=== PATIENT | male | born 1985 | race Caucasian/White ===

== ENCOUNTER 2022-09-28 09:04 | Inpatient (IN) | payer OTHER ==
[2022-09-28 09:31] VITALS: BMI 31.3
[2022-09-28] MEDS ORDERED: IBUPROFEN 400 MG TABLET (FP) PO PRN (10:08)
[2022-09-28] MEDS ORDERED: MAGNESIUM HYDROX 2400MG/30ML ORAL SUSPENSION 30 ML CUP PO PRN (10:08)
[2022-09-28] MEDS ORDERED: NALOXONE HCL (KLOXXADO) 8 MG SPRAY NS PRN (10:08)
[2022-09-28] MEDS ORDERED: IBUPROFEN 600 MG TABLET (FP) PO PRN (10:08)
[2022-09-28] MEDS ORDERED: cloNIDine HCL 0.1 MG TABLET PO PRN (10:08)
[2022-09-28] MEDS ORDERED: POLYETHYLENE GLYCOL (HEALTHYLAX) 3350 17 GM PACKET PO PRN (10:08)
[2022-09-28] MEDS ORDERED: DICYCLOMINE HCL 10 MG CAPSULE PO PRN (10:08)
[2022-09-28] MEDS ORDERED: ONDANSETRON *ODT* 4 MG TABLET SL PRN (10:08)
[2022-09-28] MEDS ORDERED: LOPERAMIDE HCL 2 MG CAPSULE PO PRN (10:08)
[2022-09-28] MEDS ORDERED: ACETAMINOPHEN 325 MG TABLET (FP) PO PRN (10:08)
[2022-09-28] MEDS ORDERED: BISMUTH SUBSALICYLATE 524 MG/30 ML PO PRN (10:08)
[2022-09-28] MEDS ORDERED: BENZOCAINE/MENTHOL (CHLORASEPTIC ) LOZENGE MM PRN (10:08)
[2022-09-28] MEDS ORDERED: methaDONE HCL 10 MG TABLET (FOR DETOX USE ONLY) PO ONE (10:08)
[2022-09-28] MEDS ORDERED: diazePAM 5 MG TABLET PO PRN (10:14)
[2022-09-28] MEDS ORDERED: methaDONE HCL 10 MG TABLET (FOR DETOX USE ONLY) ONE (10:37)
[2022-09-28] MEDS: BUDESONIDE/FORMETEROL FUMARATE 160/4.5 mcg INHALER IH SCH ×2 (14:53→23:11)
[2022-09-28] MEDS: ACETAMINOPHEN 325 MG TABLET (FP) PO PRN (17:33)
[2022-09-28] MEDS: MELATONIN 5 MG TABLETS PO SCH (23:10)
[2022-09-28] MEDS: THIAMINE HCL 100 MG TABLET (FP) PO SCH (23:11)
[2022-09-29] MEDS: METHOCARBAMOL 500 MG TABLET PO PRN ×3 (03:44→17:37)
[2022-09-29] MEDS: ACETAMINOPHEN 325 MG TABLET (FP) PO PRN ×2 (03:44→07:05)
[2022-09-29] MEDS: ALBUTEROL SO4 HFA INHALER IH PRN ×2 (09:04→17:36)
[2022-09-29] MEDS: PRENATAL VITAMINS W/ FOLIC ACID TABLET (FP) PO SCH (10:10)
[2022-09-29] MEDS: BUDESONIDE/FORMETEROL FUMARATE 160/4.5 mcg INHALER IH SCH ×2 (10:10→21:45)
[2022-09-29 13:08] LABS: HEMATOCRIT 42.7 % (35.4-49); HEMOGLOBIN 14.4 GM/dL (11.7-16.9); MCH 29.8 pg (25.7-33.7); MCHC 33.8 g/dl (32.0-35.9); MEAN CELL VOLUME 88.3 fl (80-96); MEAN PLT VOLUME 8.6 fl (7.5-11.1); PLATELET COUNT 396 10^3/uL (134-434); RBC 4.84 M/mm3 (4.00-5.60); RDW 13.7 % (11.9-15.9); WHITE BLOOD COUNT 7.9 K/mm3 (4.0-10.0)
[2022-09-29 13:15] LABS: CALCIUM 8.8 mg/dL (8.5-10.1)
[2022-09-29 13:18] LABS: ALBUMIN 3.6 g/dl (3.4-5.0)
[2022-09-29 13:21] LABS: CREATININE 0.8 mg/dL (0.55-1.3)
[2022-09-29 13:22] LABS: BILIRUBIN,TOTAL 0.4 mg/dL (0.2-1); TOT PROT 6.7 g/dl (6.4-8.2)
[2022-09-29] MEDS: MELATONIN 5 MG TABLETS PO SCH (21:45)
[2022-09-29] MEDS: THIAMINE HCL 100 MG TABLET (FP) PO SCH (21:45)
[2022-09-30] MEDS: MAG HYDROX/AL HYDROX/SIMETH 30 ML UNIT-DOSE CUP PO PRN (04:46)
[2022-09-30] MEDS ORDERED: methaDONE HCL 10 MG TABLET (FOR DETOX USE ONLY) PO ONE (10:00)
[2022-09-30] MEDS: BUDESONIDE/FORMETEROL FUMARATE 160/4.5 mcg INHALER IH SCH ×2 (10:05→21:20)
[2022-09-30] MEDS: PRENATAL VITAMINS W/ FOLIC ACID TABLET (FP) PO SCH (10:05)
[2022-09-30] MEDS ORDERED: BACITRACIN 0.9 GM PACKET TP ONE (13:00)
[2022-09-30] MEDS: hydrOXYzine PAMOATE 25 MG CAPSULE (FP) PO PRN (14:27)
[2022-09-30] MEDS: METHOCARBAMOL 500 MG TABLET PO PRN (17:27)
[2022-09-30] MEDS: THIAMINE HCL 100 MG TABLET (FP) PO SCH (21:17)
[2022-09-30] MEDS: MELATONIN 5 MG TABLETS PO SCH (21:17)
[2022-10-01] MEDS: ACETAMINOPHEN 325 MG TABLET (FP) PO PRN (00:57)
[2022-10-01] MEDS: ALBUTEROL SO4 HFA INHALER IH PRN ×3 (00:57→23:59)
[2022-10-01] MEDS: METHOCARBAMOL 500 MG TABLET PO PRN ×4 (02:01→22:24)
[2022-10-01] MEDS: PRENATAL VITAMINS W/ FOLIC ACID TABLET (FP) PO SCH (10:10)
[2022-10-01] MEDS: BUDESONIDE/FORMETEROL FUMARATE 160/4.5 mcg INHALER IH SCH ×2 (11:31→22:05)
[2022-10-01] MEDS: THIAMINE HCL 100 MG TABLET (FP) PO SCH (22:05)
[2022-10-01] MEDS: MELATONIN 5 MG TABLETS PO SCH (22:05)
[2022-10-01] MEDS: hydrOXYzine PAMOATE 25 MG CAPSULE (FP) PO PRN ×2 (22:24→23:11)
[2022-10-02] MEDS: PRENATAL VITAMINS W/ FOLIC ACID TABLET (FP) PO SCH (09:56)
[2022-10-02] MEDS: BUDESONIDE/FORMETEROL FUMARATE 160/4.5 mcg INHALER IH SCH ×2 (09:56→22:53)
[2022-10-02] MEDS ORDERED: methaDONE HCL 10 MG TABLET (FOR DETOX USE ONLY) PO ONE (10:00)
[2022-10-02] MEDS: METHOCARBAMOL 500 MG TABLET PO PRN ×3 (10:25→22:55)
[2022-10-02] MEDS: hydrOXYzine PAMOATE 25 MG CAPSULE (FP) PO PRN (16:26)
[2022-10-02] MEDS: THIAMINE HCL 100 MG TABLET (FP) PO SCH (22:53)
[2022-10-02] MEDS: MELATONIN 5 MG TABLETS PO SCH (22:54)
[2022-10-02] MEDS: MAG HYDROX/AL HYDROX/SIMETH 30 ML UNIT-DOSE CUP PO PRN (23:32)
[2022-10-03 06:38] VITALS: BP 140/79; PULSE 71; RESP 16; TEMP 97.7
== END 2022-10-03 08:57 | disposition home or self-care (01) | DRG 773 ==
LOC: YASAS 09:04 → Y3N 10:50
PROVIDERS: ADMIT Allergy & Immunology; ATTEND Surgery
PROC: HZ2ZZZZ Detoxification Services for Substance Abuse Treatment (ICD-10-PCS; principal; 2022-09-28)
DX: F11.23 Opioid dependence with withdrawal (principal); J45.20 Mild intermittent asthma, uncomplicated; E86.0 Dehydration; G47.00 Insomnia, unspecified
CPT/HCPCS: 36415; 80053; 85027; 86780; 87811; 93005; 93010; C9803-CS; U0003; U0005

== ENCOUNTER 2022-12-27 10:21 | Inpatient (IN) | payer OTHER ==
[2022-12-27 10:40] VITALS: BMI 30.1
[2022-12-27] MEDS ORDERED: ONDANSETRON *ODT* 4 MG TABLET SL PRN (11:02)
[2022-12-27] MEDS ORDERED: ACETAMINOPHEN 325 MG TABLET (FP) PO PRN (11:02)
[2022-12-27] MEDS ORDERED: BENZONATATE 200 MG CAPSULE PO PRN (11:02)
[2022-12-27] MEDS ORDERED: NALOXONE HCL (KLOXXADO) 8 MG SPRAY NS PRN (11:02)
[2022-12-27] MEDS ORDERED: cloNIDine HCL 0.1 MG TABLET PO PRN (11:02)
[2022-12-27] MEDS ORDERED: BISMUTH SUBSALICYLATE 524 MG/30 ML PO PRN (11:02)
[2022-12-27] MEDS ORDERED: DICYCLOMINE HCL 10 MG CAPSULE PO PRN (11:02)
[2022-12-27] MEDS ORDERED: NALOXONE HCL 0.4 MG/ML VIAL IM PRN (11:02)
[2022-12-27] MEDS ORDERED: POLYETHYLENE GLYCOL (HEALTHYLAX) 3350 17 GM PACKET PO PRN (11:02)
[2022-12-27] MEDS ORDERED: MAG HYDROX/AL HYDROX/SIMETH 30 ML UNIT-DOSE CUP PO PRN (11:02)
[2022-12-27] MEDS ORDERED: LOPERAMIDE HCL 2 MG CAPSULE PO PRN (11:02)
[2022-12-27] MEDS ORDERED: MAGNESIUM HYDROX 2400MG/30ML ORAL SUSPENSION 30 ML CUP PO PRN (11:02)
[2022-12-27] MEDS ORDERED: methaDONE HCL 10 MG TABLET (FOR DETOX USE ONLY) PO ONE (11:02)
[2022-12-27] MEDS ORDERED: clonazePAM 0.5 MG ODT TABLETS SL PRN (11:02)
[2022-12-27] MEDS ORDERED: BENZOCAINE/MENTHOL (CHLORASEPTIC ) LOZENGE MM PRN (11:02)
[2022-12-27] MEDS ORDERED: guaiFENesin 600 MG TABLET.ER (FP) PO PRN (11:02)
[2022-12-27] MEDS ORDERED: VITAMINS A AND D TOPICAL OINTMENT 60 GM TUBE TP PRN (11:10)
[2022-12-27] MEDS ORDERED: methaDONE HCL 10 MG TABLET (FOR DETOX USE ONLY) ONE (11:24)
[2022-12-27] MEDS: METHOCARBAMOL 500 MG TABLET PO PRN ×2 (13:27→20:42)
[2022-12-27] MEDS: IBUPROFEN 600 MG TABLET (FP) PO PRN (18:09)
[2022-12-27] MEDS: hydrOXYzine PAMOATE 25 MG CAPSULE (FP) PO PRN (18:09)
[2022-12-27] MEDS: MELATONIN 5 MG TABLETS PO SCH (23:00)
[2022-12-27] MEDS: THIAMINE HCL 100 MG TABLET (FP) PO SCH (23:00)
[2022-12-28] MEDS: IBUPROFEN 400 MG TABLET (FP) PO PRN ×3 (05:09→23:55)
[2022-12-28] MEDS: METHOCARBAMOL 500 MG TABLET PO PRN ×4 (05:11→23:55)
[2022-12-28] MEDS: PRENATAL VITAMINS W/ FOLIC ACID TABLET (FP) PO SCH (10:22)
[2022-12-28] MEDS: BUDESONIDE/FORMETEROL FUMARATE 160/4.5 mcg INHALER IH PRN (10:27)
[2022-12-28 11:10] LABS: ALBUMIN 3.3 g/dl (3.4-5.0); BLOOD UREA NITROGEN 17.3 mg/dL (7-18); CALCIUM 8.7 mg/dL (8.5-10.1)
[2022-12-28 11:12] LABS: CREATININE 0.7 mg/dL (0.55-1.3)
[2022-12-28 11:13] LABS: HEMATOCRIT 39.3 % (35.4-49); HEMOGLOBIN 13.4 GM/dL (11.7-16.9); MCH 30.1 pg (25.7-33.7); MCHC 34.1 g/dl (32.0-35.9); MEAN CELL VOLUME 88.2 fl (80-96); MEAN PLT VOLUME 8.9 fl (7.5-11.1); PLATELET COUNT 302 10^3/uL (134-434); RBC 4.45 M/mm3 (4.00-5.60); RDW 13.1 % (11.9-15.9); WHITE BLOOD COUNT 7.3 K/mm3 (4.0-10.0)
[2022-12-28 11:14] LABS: TOT PROT 6.1 g/dl (6.4-8.2)
[2022-12-28 11:16] LABS: BILIRUBIN,TOTAL 0.5 mg/dL (0.2-1)
[2022-12-28] MEDS: MELATONIN 5 MG TABLETS PO SCH (22:51)
[2022-12-28] MEDS: THIAMINE HCL 100 MG TABLET (FP) PO SCH (22:53)
[2022-12-29] MEDS: IBUPROFEN 400 MG TABLET (FP) PO PRN (05:55)
[2022-12-29] MEDS: METHOCARBAMOL 500 MG TABLET PO PRN ×3 (07:03→20:42)
[2022-12-29] MEDS ORDERED: methaDONE HCL 10 MG TABLET (FOR DETOX USE ONLY) PO ONE (10:00)
[2022-12-29] MEDS: PRENATAL VITAMINS W/ FOLIC ACID TABLET (FP) PO SCH (11:01)
[2022-12-29] MEDS: BUDESONIDE/FORMETEROL FUMARATE 160/4.5 mcg INHALER IH PRN (14:35)
[2022-12-29] MEDS: hydrOXYzine PAMOATE 25 MG CAPSULE (FP) PO PRN (17:27)
[2022-12-29] MEDS: IBUPROFEN 600 MG TABLET (FP) PO PRN (17:27)
[2022-12-29] MEDS: MELATONIN 5 MG TABLETS PO SCH (21:19)
[2022-12-29] MEDS: THIAMINE HCL 100 MG TABLET (FP) PO SCH (21:20)
[2022-12-30] MEDS: METHOCARBAMOL 500 MG TABLET PO PRN ×3 (06:02→20:11)
[2022-12-30] MEDS: IBUPROFEN 400 MG TABLET (FP) PO PRN (06:02)
[2022-12-30] MEDS: PRENATAL VITAMINS W/ FOLIC ACID TABLET (FP) PO SCH (10:15)
[2022-12-30] MEDS: hydrOXYzine PAMOATE 25 MG CAPSULE (FP) PO PRN ×2 (10:18→22:03)
[2022-12-30] MEDS: IBUPROFEN 600 MG TABLET (FP) PO PRN (13:45)
[2022-12-30] MEDS: MELATONIN 5 MG TABLETS PO SCH (22:00)
[2022-12-30] MEDS: THIAMINE HCL 100 MG TABLET (FP) PO SCH (22:00)
[2022-12-31] MEDS: IBUPROFEN 600 MG TABLET (FP) PO PRN (02:40)
[2022-12-31] MEDS: METHOCARBAMOL 500 MG TABLET PO PRN (05:46)
[2022-12-31] MEDS: hydrOXYzine PAMOATE 25 MG CAPSULE (FP) PO PRN (05:46)
[2022-12-31] MEDS: PRENATAL VITAMINS W/ FOLIC ACID TABLET (FP) PO SCH (09:15)
[2022-12-31 09:24] VITALS: BP 140/71; PULSE 76; RESP 20; TEMP 97.9
[2022-12-31] MEDS ORDERED: methaDONE HCL 10 MG TABLET (FOR DETOX USE ONLY) PO ONE (10:00)
== END 2022-12-31 10:45 | disposition home or self-care (01) | DRG 773 ==
LOC: YASAS 10:21 → Y3N 11:33
PROVIDERS: ADMIT Allergy & Immunology; ATTEND Surgery
PROC: HZ2ZZZZ Detoxification Services for Substance Abuse Treatment (ICD-10-PCS; principal; 2022-12-27)
DX: F11.23 Opioid dependence with withdrawal (principal); J45.20 Mild intermittent asthma, uncomplicated; L30.9 Dermatitis, unspecified
CPT/HCPCS: 36415; 80053; 85027; 86780; 87811; C9803-CS; U0003; U0005

== ENCOUNTER 2023-01-09 13:05 | Inpatient (IN) | payer OTHER ==
[2023-01-09 13:56] VITALS: BMI 29.7
[2023-01-09] MEDS ORDERED: NALOXONE HCL 0.4 MG/ML VIAL IM PRN (14:39)
[2023-01-09] MEDS ORDERED: LOPERAMIDE HCL 2 MG CAPSULE PO PRN (14:39)
[2023-01-09] MEDS ORDERED: P-EPHED 60MG/TRIPROLIDI 2.5MG TABLET PO PRN (14:39)
[2023-01-09] MEDS ORDERED: MAGNESIUM HYDROX 2400MG/30ML ORAL SUSPENSION 30 ML CUP PO PRN (14:39)
[2023-01-09] MEDS ORDERED: POLYETHYLENE GLYCOL (HEALTHYLAX) 3350 17 GM PACKET PO PRN (14:39)
[2023-01-09] MEDS ORDERED: NALOXONE HCL (KLOXXADO) 8 MG SPRAY NS PRN (14:39)
[2023-01-09] MEDS ORDERED: BISMUTH SUBSALICYLATE 524 MG/30 ML PO PRN (14:39)
[2023-01-09] MEDS ORDERED: BENZOCAINE/MENTHOL (CHLORASEPTIC ) LOZENGE MM PRN (14:39)
[2023-01-09] MEDS ORDERED: ONDANSETRON *ODT* 4 MG TABLET SL PRN (14:39)
[2023-01-09] MEDS ORDERED: guaiFENesin 600 MG TABLET.ER (FP) PO PRN (14:39)
[2023-01-09] MEDS ORDERED: DICYCLOMINE HCL 10 MG CAPSULE PO PRN (14:39)
[2023-01-09] MEDS ORDERED: BENZONATATE 200 MG CAPSULE PO PRN (14:39)
[2023-01-09] MEDS ORDERED: cloNIDine HCL 0.1 MG TABLET PO PRN (14:41)
[2023-01-09] MEDS ORDERED: methaDONE HCL 10 MG TABLET (FOR DETOX USE ONLY) PO ONE (14:41)
[2023-01-09] MEDS ORDERED: ACETAMINOPHEN 325 MG TABLET (FP) ONE (15:34)
[2023-01-09] MEDS: ACETAMINOPHEN 325 MG TABLET (FP) PO PRN ×2 (15:36→22:43)
[2023-01-09] MEDS: BUDESONIDE/FORMETEROL FUMARATE 160/4.5 mcg INHALER IH SCH (16:48)
[2023-01-09] MEDS: METHOCARBAMOL 500 MG TABLET PO PRN (17:45)
[2023-01-09] MEDS: THIAMINE HCL 100 MG TABLET (FP) PO SCH (22:42)
[2023-01-09] MEDS: MELATONIN 5 MG TABLETS PO SCH (22:42)
[2023-01-09] MEDS: hydrOXYzine PAMOATE 25 MG CAPSULE (FP) PO PRN (22:42)
[2023-01-10] MEDS: PRENATAL VITAMINS W/ FOLIC ACID TABLET (FP) PO SCH (10:23)
[2023-01-10] MEDS: ACETAMINOPHEN 325 MG TABLET (FP) PO PRN (10:23)
[2023-01-10] MEDS: METHOCARBAMOL 500 MG TABLET PO PRN ×2 (10:23→17:15)
[2023-01-10] MEDS: MAG HYDROX/AL HYDROX/SIMETH 30 ML UNIT-DOSE CUP PO PRN (10:24)
[2023-01-10] MEDS: BUDESONIDE/FORMETEROL FUMARATE 160/4.5 mcg INHALER IH SCH (10:25)
[2023-01-10] MEDS: IBUPROFEN 400 MG TABLET (FP) PO PRN ×2 (14:30→20:20)
[2023-01-10] MEDS: hydrOXYzine PAMOATE 25 MG CAPSULE (FP) PO PRN ×2 (14:32→21:45)
[2023-01-10] MEDS: THIAMINE HCL 100 MG TABLET (FP) PO SCH (21:45)
[2023-01-10] MEDS: MELATONIN 5 MG TABLETS PO SCH (21:45)
[2023-01-11] MEDS: METHOCARBAMOL 500 MG TABLET PO PRN ×3 (02:18→17:24)
[2023-01-11] MEDS: ACETAMINOPHEN 325 MG TABLET (FP) PO PRN (07:21)
[2023-01-11] MEDS ORDERED: methaDONE HCL 10 MG TABLET (FOR DETOX USE ONLY) PO ONE (10:00)
[2023-01-11] MEDS: PRENATAL VITAMINS W/ FOLIC ACID TABLET (FP) PO SCH (10:07)
[2023-01-11] MEDS: hydrOXYzine PAMOATE 25 MG CAPSULE (FP) PO PRN ×2 (10:07→18:40)
[2023-01-11] MEDS: BUDESONIDE/FORMETEROL FUMARATE 160/4.5 mcg INHALER IH SCH (10:09)
[2023-01-11] MEDS: IBUPROFEN 600 MG TABLET (FP) PO PRN (14:44)
[2023-01-11] MEDS: MELATONIN 5 MG TABLETS PO SCH (22:38)
[2023-01-11] MEDS: THIAMINE HCL 100 MG TABLET (FP) PO SCH (22:39)
[2023-01-12] MEDS: METHOCARBAMOL 500 MG TABLET PO PRN ×4 (00:27→18:34)
[2023-01-12] MEDS: hydrOXYzine PAMOATE 25 MG CAPSULE (FP) PO PRN ×3 (05:30→20:11)
[2023-01-12] MEDS: ACETAMINOPHEN 325 MG TABLET (FP) PO PRN (05:31)
[2023-01-12] MEDS: IBUPROFEN 600 MG TABLET (FP) PO PRN ×2 (07:38→20:11)
[2023-01-12] MEDS: BUDESONIDE/FORMETEROL FUMARATE 160/4.5 mcg INHALER IH SCH (10:05)
[2023-01-12] MEDS: PRENATAL VITAMINS W/ FOLIC ACID TABLET (FP) PO SCH (10:05)
[2023-01-12] MEDS ORDERED: ALBUTEROL SO4 HFA INHALER IH PRN (10:10)
[2023-01-12] MEDS: MAG HYDROX/AL HYDROX/SIMETH 30 ML UNIT-DOSE CUP PO PRN (20:31)
[2023-01-12] MEDS: MELATONIN 5 MG TABLETS PO SCH (22:58)
[2023-01-12] MEDS: THIAMINE HCL 100 MG TABLET (FP) PO SCH (22:59)
[2023-01-13] MEDS: MELATONIN 5 MG TABLETS PO SCH ×2 (00:05→22:00)
[2023-01-13] MEDS: METHOCARBAMOL 500 MG TABLET PO PRN ×3 (00:25→17:26)
[2023-01-13] MEDS ORDERED: methaDONE HCL 10 MG TABLET (FOR DETOX USE ONLY) PO ONE (10:00)
[2023-01-13] MEDS: BUDESONIDE/FORMETEROL FUMARATE 160/4.5 mcg INHALER IH SCH (10:24)
[2023-01-13] MEDS: hydrOXYzine PAMOATE 25 MG CAPSULE (FP) PO PRN ×2 (10:25→17:26)
[2023-01-13] MEDS: PRENATAL VITAMINS W/ FOLIC ACID TABLET (FP) PO SCH (10:25)
[2023-01-13] MEDS: ACETAMINOPHEN 325 MG TABLET (FP) PO PRN (19:23)
[2023-01-13] MEDS: THIAMINE HCL 100 MG TABLET (FP) PO SCH (21:59)
[2023-01-14] MEDS: hydrOXYzine PAMOATE 25 MG CAPSULE (FP) PO PRN (02:03)
[2023-01-14] MEDS: MAG HYDROX/AL HYDROX/SIMETH 30 ML UNIT-DOSE CUP PO PRN (02:03)
[2023-01-14] MEDS: METHOCARBAMOL 500 MG TABLET PO PRN (02:03)
[2023-01-14] MEDS: PRENATAL VITAMINS W/ FOLIC ACID TABLET (FP) PO SCH (09:15)
[2023-01-14] MEDS: BUDESONIDE/FORMETEROL FUMARATE 160/4.5 mcg INHALER IH SCH (09:15)
[2023-01-14 09:38] VITALS: BP 132/75; PULSE 82; RESP 17; TEMP 98.1
== END 2023-01-14 09:54 | disposition home or self-care (01) | DRG 773 ==
LOC: YASAS 13:05 → Y6N 15:38
PROVIDERS: ADMIT Allergy & Immunology; ATTEND Surgery
PROC: HZ2ZZZZ Detoxification Services for Substance Abuse Treatment (ICD-10-PCS; principal; 2023-01-09)
DX: F11.23 Opioid dependence with withdrawal (principal); F19.282 Other psychoactive substance dependence with psychoactive substance-induced sleep disorder; J45.20 Mild intermittent asthma, uncomplicated; L30.9 Dermatitis, unspecified
CPT/HCPCS: C9803-CS; Q0162; U0003; U0005

== ENCOUNTER 2023-02-23 10:58 | Inpatient (IN) | payer OTHER ==
[2023-02-23 11:07] VITALS: BMI 30.4
[2023-02-23] MEDS ORDERED: POLYETHYLENE GLYCOL (HEALTHYLAX) 3350 17 GM PACKET PO PRN (11:52)
[2023-02-23] MEDS ORDERED: AMMONIUM LACTATE 12% LOTION 225 GM BOTTLE TP PRN (11:52)
[2023-02-23] MEDS ORDERED: ACETAMINOPHEN 325 MG TABLET (FP) PO PRN (11:52)
[2023-02-23] MEDS ORDERED: BISMUTH SUBSALICYLATE 262 MG/15 ML BTL PO PRN (11:52)
[2023-02-23] MEDS ORDERED: LOPERAMIDE HCL 2 MG CAPSULE PO PRN (11:52)
[2023-02-23] MEDS ORDERED: BENZOCAINE/MENTHOL (CHLORASEPTIC ) LOZENGE MM PRN (11:52)
[2023-02-23] MEDS ORDERED: BENZONATATE 200 MG CAPSULE PO PRN (11:52)
[2023-02-23] MEDS ORDERED: guaiFENesin 600 MG TABLET.ER (FP) PO PRN (11:52)
[2023-02-23] MEDS ORDERED: NALOXONE HCL (KLOXXADO) 8 MG SPRAY NS PRN (11:52)
[2023-02-23] MEDS ORDERED: COLLOIDAL OATMEAL 1 BAR EACH TP PRN (11:52)
[2023-02-23] MEDS ORDERED: NALOXONE HCL 0.4 MG/ML VIAL IM PRN (11:52)
[2023-02-23] MEDS ORDERED: NICOTINE 10 MG CARTRIDGE (INHALER) IH PRN (11:52)
[2023-02-23] MEDS ORDERED: MAGNESIUM HYDROX 2400MG/30ML ORAL SUSPENSION 30 ML CUP PO PRN (11:52)
[2023-02-23] MEDS ORDERED: MAG HYDROX/AL HYDROX/SIMETH 30 ML UNIT-DOSE CUP PO PRN (11:52)
[2023-02-23] MEDS ORDERED: ONDANSETRON *ODT* 4 MG TABLET SL PRN (11:52)
[2023-02-23] MEDS ORDERED: DICYCLOMINE HCL 10 MG CAPSULE PO PRN (11:52)
[2023-02-23] MEDS: METHOCARBAMOL 500 MG TABLET PO PRN ×2 (13:18→19:34)
[2023-02-23] MEDS: hydrOXYzine PAMOATE 25 MG CAPSULE (FP) PO PRN (13:18)
[2023-02-23] MEDS ORDERED: methaDONE HCL 10 MG TABLET (FOR DETOX USE ONLY) PO ONE (13:45)
[2023-02-23] MEDS: IBUPROFEN 400 MG TABLET (FP) PO PRN (19:35)
[2023-02-23] MEDS: ALBUTEROL SO4 HFA INHALER IH PRN (19:36)
[2023-02-23] MEDS ORDERED: MELATONIN 5 MG TABLETS PO SCH (22:00)
[2023-02-23] MEDS: THIAMINE HCL 100 MG TABLET (FP) PO SCH (22:24)
[2023-02-24] MEDS: METHOCARBAMOL 500 MG TABLET PO PRN ×2 (05:37→17:07)
[2023-02-24] MEDS: PRENATAL VITAMINS W/ FOLIC ACID TABLET (FP) PO SCH (10:22)
[2023-02-24] MEDS: ALBUTEROL SO4 HFA INHALER IH PRN ×2 (10:32→17:08)
[2023-02-24] MEDS: hydrOXYzine PAMOATE 25 MG CAPSULE (FP) PO PRN ×2 (10:32→18:44)
[2023-02-24 13:30] LABS: HEMATOCRIT 39.8 % (35.4-49); HEMOGLOBIN 13.5 GM/dL (11.7-16.9); MCH 29.8 pg (25.7-33.7); MCHC 33.9 g/dl (32.0-35.9); MEAN CELL VOLUME 87.9 fl (80-96); MEAN PLT VOLUME 8.4 fl (7.5-11.1); PLATELET COUNT 309 10^3/uL (134-434); RBC 4.52 M/mm3 (4.00-5.60); RDW 13.5 % (11.9-15.9); WHITE BLOOD COUNT 7.2 K/mm3 (4.0-10.0)
[2023-02-24 15:40] LABS: ALBUMIN 3.2 g/dl (3.4-5.0); BILIRUBIN,TOTAL 0.6 mg/dL (0.2-1); BLOOD UREA NITROGEN 19.3 mg/dL (7-18); CALCIUM 8.6 mg/dL (8.5-10.1); CREATININE 0.8 mg/dL (0.55-1.3); POTASSIUM 4.4 mmol/L (3.5-5.1); TOT PROT 5.8 g/dl (6.4-8.2)
[2023-02-24] MEDS: BUDESONIDE/FORMETEROL FUMARATE 160/4.5 mcg INHALER IH PRN (17:07)
[2023-02-24] MEDS: IBUPROFEN 400 MG TABLET (FP) PO PRN (19:44)
[2023-02-24] MEDS: THIAMINE HCL 100 MG TABLET (FP) PO SCH (21:57)
[2023-02-24] MEDS: MELATONIN 5 MG TABLETS PO SCH (21:58)
[2023-02-25] MEDS: METHOCARBAMOL 500 MG TABLET PO PRN ×3 (00:46→17:04)
[2023-02-25] MEDS: PRENATAL VITAMINS W/ FOLIC ACID TABLET (FP) PO SCH (09:19)
[2023-02-25] MEDS: hydrOXYzine PAMOATE 25 MG CAPSULE (FP) PO PRN ×2 (09:23→20:40)
[2023-02-25] MEDS: BUDESONIDE/FORMETEROL FUMARATE 160/4.5 mcg INHALER IH PRN ×2 (09:24→20:40)
[2023-02-25] MEDS ORDERED: methaDONE HCL 10 MG TABLET (FOR DETOX USE ONLY) PO ONE (10:00)
[2023-02-25] MEDS: LORATADINE 10 MG TABLET PO SCH (15:21)
[2023-02-25] MEDS: ALBUTEROL SO4 HFA INHALER IH PRN (17:02)
[2023-02-25] MEDS: THIAMINE HCL 100 MG TABLET (FP) PO SCH (21:39)
[2023-02-25] MEDS: MELATONIN 5 MG TABLETS PO SCH (21:39)
[2023-02-25] MEDS: HYDROCORTISONE 0.5% TOPICAL CREAM 30 GM TUBE TP SCH (22:00)
[2023-02-26] MEDS: METHOCARBAMOL 500 MG TABLET PO PRN ×4 (00:53→23:47)
[2023-02-26] MEDS: hydrOXYzine PAMOATE 25 MG CAPSULE (FP) PO PRN ×2 (05:39→16:58)
[2023-02-26] MEDS: HYDROCORTISONE 0.5% TOPICAL CREAM 30 GM TUBE TP SCH ×2 (10:30→22:49)
[2023-02-26] MEDS: ALBUTEROL SO4 HFA INHALER IH PRN ×2 (10:30→16:21)
[2023-02-26] MEDS: PRENATAL VITAMINS W/ FOLIC ACID TABLET (FP) PO SCH (10:32)
[2023-02-26] MEDS: LORATADINE 10 MG TABLET PO SCH (10:33)
[2023-02-26] MEDS: IBUPROFEN 600 MG TABLET (FP) PO PRN (12:20)
[2023-02-26] MEDS: THIAMINE HCL 100 MG TABLET (FP) PO SCH (21:53)
[2023-02-26] MEDS: MELATONIN 5 MG TABLETS PO SCH (21:55)
[2023-02-27] MEDS: IBUPROFEN 600 MG TABLET (FP) PO PRN (06:51)
[2023-02-27] MEDS: METHOCARBAMOL 500 MG TABLET PO PRN ×3 (06:51→18:05)
[2023-02-27] MEDS ORDERED: methaDONE HCL 10 MG TABLET (FOR DETOX USE ONLY) PO ONE (10:00)
[2023-02-27] MEDS: hydrOXYzine PAMOATE 25 MG CAPSULE (FP) PO PRN ×2 (10:21→18:05)
[2023-02-27] MEDS: PRENATAL VITAMINS W/ FOLIC ACID TABLET (FP) PO SCH (10:21)
[2023-02-27] MEDS: HYDROCORTISONE 0.5% TOPICAL CREAM 30 GM TUBE TP SCH ×2 (10:22→21:27)
[2023-02-27] MEDS: LORATADINE 10 MG TABLET PO SCH (10:22)
[2023-02-27] MEDS: MELATONIN 5 MG TABLETS PO SCH (21:26)
[2023-02-27] MEDS: THIAMINE HCL 100 MG TABLET (FP) PO SCH (21:26)
[2023-02-28] MEDS: METHOCARBAMOL 500 MG TABLET PO PRN ×3 (00:11→12:13)
[2023-02-28] MEDS: IBUPROFEN 400 MG TABLET (FP) PO PRN (00:11)
[2023-02-28] MEDS: ALBUTEROL SO4 HFA INHALER IH PRN (05:56)
[2023-02-28 06:37] VITALS: RESP 18
[2023-02-28] MEDS: LORATADINE 10 MG TABLET PO SCH (09:29)
[2023-02-28] MEDS: IBUPROFEN 600 MG TABLET (FP) PO PRN (09:29)
[2023-02-28] MEDS: HYDROCORTISONE 0.5% TOPICAL CREAM 30 GM TUBE TP SCH (09:30)
[2023-02-28] MEDS: PRENATAL VITAMINS W/ FOLIC ACID TABLET (FP) PO SCH (09:31)
[2023-02-28 09:56] VITALS: BP 130/75; PULSE 89; TEMP 96.9
[2023-02-28] MEDS: hydrOXYzine PAMOATE 25 MG CAPSULE (FP) PO PRN (11:05)
== END 2023-02-28 12:15 | disposition home or self-care (01) | DRG 773 ==
LOC: YASAS 10:58 → Y6N 11:36
PROVIDERS: ADMIT Allergy & Immunology; ATTEND Surgery
PROC: HZ2ZZZZ Detoxification Services for Substance Abuse Treatment (ICD-10-PCS; principal; 2023-02-23)
DX: F11.23 Opioid dependence with withdrawal (principal); F19.282 Other psychoactive substance dependence with psychoactive substance-induced sleep disorder; F41.9 Anxiety disorder, unspecified; F32.A Depression, unspecified; J45.20 Mild intermittent asthma, uncomplicated; L30.9 Dermatitis, unspecified; Z87.891 Personal history of nicotine dependence
CPT/HCPCS: 36415; 80053; 85027; 86780; 87635; Q0162

== ENCOUNTER 2024-04-08 11:04 | Inpatient (IN) | payer OTHER ==
[2024-04-08 11:52] VITALS: BMI 30.2
[2024-04-08] MEDS ORDERED: BENZONATATE 200 MG CAPSULE PO PRN (13:01)
[2024-04-08] MEDS ORDERED: guaiFENesin 600 MG TABLET.ER (FP) PO PRN (13:01)
[2024-04-08] MEDS ORDERED: LOPERAMIDE HCL 2 MG CAPSULE PO PRN (13:01)
[2024-04-08] MEDS ORDERED: ONDANSETRON *ODT* 4 MG TABLET SL PRN (13:01)
[2024-04-08] MEDS ORDERED: POLYETHYLENE GLYCOL (HEALTHYLAX) 3350 17 GM PACKET PO PRN (13:01)
[2024-04-08] MEDS ORDERED: ACETAMINOPHEN 325 MG TABLET (FP) PO PRN (13:01)
[2024-04-08] MEDS ORDERED: IBUPROFEN 400 MG TABLET (FP) PO PRN (13:01)
[2024-04-08] MEDS ORDERED: NALOXONE (NARCAN) HCL 4 MG/0.1 ML SPRAY NS PRN (13:01)
[2024-04-08] MEDS ORDERED: NALOXONE HCL 0.4 MG/ML VIAL IM PRN (13:01)
[2024-04-08] MEDS ORDERED: BENZOCAINE/MENTHOL (CHLORASEPTIC ) LOZENGE MM PRN (13:01)
[2024-04-08] MEDS ORDERED: DICYCLOMINE HCL 10 MG CAPSULE PO PRN (13:01)
[2024-04-08] MEDS ORDERED: BISMUTH SUBSALICYLATE 524 MG/30 ML PO PRN (13:01)
[2024-04-08] MEDS ORDERED: P-EPHED 60MG/TRIPROLIDI 2.5MG TABLET PO PRN (13:01)
[2024-04-08] MEDS ORDERED: METHOCARBAMOL 500 MG TABLET ONE (13:26)
[2024-04-08] MEDS ORDERED: methaDONE HCL 10 MG TABLET ONE (13:27)
[2024-04-08] MEDS: METHOCARBAMOL 500 MG TABLET PO PRN (13:32)
[2024-04-08] MEDS: methaDONE HCL 10 MG TABLET (FOR DETOX USE ONLY) PO ONE (13:32)
[2024-04-08] MEDS ORDERED: ONDANSETRON *ODT* 4 MG TABLET ONE (13:35)
[2024-04-08] MEDS ORDERED: ALBUTEROL SO4 HFA INHALER IH ONE (14:00)
[2024-04-08] MEDS: cloNIDine HCL 0.1 MG TABLET PO PRN (17:25)
[2024-04-08] MEDS: MAGNESIUM HYDROX 2400MG/30ML ORAL SUSPENSION 30 ML CUP PO PRN (17:29)
[2024-04-08] MEDS: ALBUTEROL SO4 HFA INHALER IH PRN (17:46)
[2024-04-08] MEDS: THIAMINE 100 MG TABLET PO SCH (21:01)
[2024-04-08] MEDS: MELATONIN 5 MG TABLETS PO SCH (21:02)
[2024-04-08] MEDS: BUDESONIDE/FORMETEROL FUMARATE 160/4.5 mcg INHALER IH SCH (21:02)
[2024-04-08] MEDS: diazePAM 5 MG TABLET PO ONE (23:03)
[2024-04-09] MEDS: IBUPROFEN 600 MG TABLET (FP) PO PRN (05:16)
[2024-04-09] MEDS: PRENATAL VITAMINS W/ FOLIC ACID TABLET (FP) PO SCH (10:03)
[2024-04-09 10:56] LABS: HEMATOCRIT 37.5 % (35.4-49); HEMOGLOBIN 12.7 GM/dL (11.7-16.9); MCH 30.5 pg (25.7-33.7); MCHC 33.9 g/dl (32.0-35.9); MEAN CELL VOLUME 90.2 fl (80-96); MEAN PLT VOLUME 8.8 fl (7.5-11.1); PLATELET COUNT 324 10^3/uL (134-434); RBC 4.16 M/mm3 (4.00-5.60); RDW 13.4 % (11.9-15.9); WHITE BLOOD COUNT 8.9 K/mm3 (4.0-10.0)
[2024-04-09 11:03] LABS: POTASSIUM 4.4 mmol/L (3.5-5.1)
[2024-04-09 11:12] LABS: ALBUMIN 3.4 g/dl (3.4-5.0); CALCIUM 8.9 mg/dL (8.5-10.1)
[2024-04-09 11:15] LABS: CREATININE 0.9 mg/dL (0.55-1.3)
[2024-04-09 11:17] LABS: BILIRUBIN,TOTAL 0.2 mg/dL (0.2-1); TOT PROT 6.2 g/dl (6.4-8.2)
[2024-04-09 12:29] LABS: HIV INTERPRETATION NEGATIVE (NEGATIVE)
[2024-04-09] MEDS: MELATONIN 5 MG TABLETS PO ONE (22:21)
[2024-04-10] MEDS: methaDONE HCL 10 MG TABLET (FOR DETOX USE ONLY) PO ONE (09:56)
[2024-04-10] MEDS: MAG HYDROX/AL HYDROX/SIMETH 30 ML UNIT-DOSE CUP PO PRN (10:54)
[2024-04-10] MEDS: diazePAM 5 MG TABLET PO PRN (14:13)
[2024-04-11] MEDS: METHYL SALICYLATE/MENTHOL OINT 30 GM TUBE TP SCH (11:55)
[2024-04-11] MEDS ORDERED: SUVOREXANT 10 MG TABLET PO PRN (14:04)
[2024-04-11] MEDS: SUVOREXANT 5 MG TABLET PO PRN (22:19)
[2024-04-12] MEDS: methaDONE HCL 10 MG TABLET (FOR DETOX USE ONLY) PO ONE (09:04)
[2024-04-13 09:20] VITALS: BP 143/69; PULSE 90; RESP 18; TEMP 98.1
== END 2024-04-13 10:25 | disposition home or self-care (01) | DRG 773 ==
LOC: YASAS 11:04 → Y6N 13:47
PROVIDERS: ADMIT Allergy & Immunology; ATTEND Surgery
PROC: HZ2ZZZZ Detoxification Services for Substance Abuse Treatment (ICD-10-PCS; principal; 2024-04-08)
DX: F11.23 Opioid dependence with withdrawal (principal); F19.282 Other psychoactive substance dependence with psychoactive substance-induced sleep disorder; F41.9 Anxiety disorder, unspecified; F32.A Depression, unspecified; J45.20 Mild intermittent asthma, uncomplicated
CPT/HCPCS: 36415; 80053; 80305; 80307; 85027; 86780; 86803; 87389; 93005; 93010

== ENCOUNTER 2024-05-26 09:44 | Inpatient (IN) | payer OTHER ==
[2024-05-26 09:59] VITALS: BMI 30.4
[2024-05-26] MEDS ORDERED: BENZOCAINE/MENTHOL (CHLORASEPTIC ) LOZENGE MM PRN (11:49)
[2024-05-26] MEDS ORDERED: LOPERAMIDE HCL 2 MG CAPSULE PO PRN (11:49)
[2024-05-26] MEDS ORDERED: guaiFENesin 600 MG TABLET.ER (FP) PO PRN (11:49)
[2024-05-26] MEDS ORDERED: BISMUTH SUBSALICYLATE 524 MG/30 ML PO PRN (11:49)
[2024-05-26] MEDS ORDERED: NALOXONE (NARCAN) HCL 4 MG/0.1 ML SPRAY NS PRN (11:49)
[2024-05-26] MEDS ORDERED: DICYCLOMINE HCL 10 MG CAPSULE PO PRN (11:49)
[2024-05-26] MEDS ORDERED: BENZONATATE 200 MG CAPSULE PO PRN (11:49)
[2024-05-26] MEDS ORDERED: IBUPROFEN 400 MG TABLET (FP) PO PRN (11:49)
[2024-05-26] MEDS ORDERED: MAG HYDROX/AL HYDROX/SIMETH 30 ML UNIT-DOSE CUP PO PRN (11:49)
[2024-05-26] MEDS ORDERED: NALOXONE HCL 0.4 MG/ML VIAL IM PRN (11:49)
[2024-05-26] MEDS ORDERED: ONDANSETRON *ODT* 4 MG TABLET ONE (12:02)
[2024-05-26] MEDS ORDERED: methaDONE HCL 10 MG TABLET (FOR DETOX USE ONLY) ONE (12:02)
[2024-05-26] MEDS: ONDANSETRON *ODT* 4 MG TABLET SL PRN (12:03)
[2024-05-26] MEDS: methaDONE HCL 10 MG TABLET (FOR DETOX USE ONLY) PO ONE (12:07)
[2024-05-26] MEDS: METHOCARBAMOL 500 MG TABLET PO PRN (13:02)
[2024-05-26] MEDS: hydrOXYzine PAMOATE 25 MG CAPSULE (FP) PO PRN (13:02)
[2024-05-26] MEDS: diazePAM 5 MG TABLET PO PRN (14:41)
[2024-05-26] MEDS ORDERED: ALBUTEROL SO4 HFA INHALER IH PRN (15:40)
[2024-05-26] MEDS: ALBUTEROL SO4 HFA INHALER IH PRN (17:40)
[2024-05-26] MEDS: BUDESONIDE/FORMETEROL FUMARATE 160/4.5 mcg INHALER IH SCH (21:36)
[2024-05-26] MEDS: MELATONIN 5 MG TABLETS PO SCH (21:37)
[2024-05-26] MEDS: THIAMINE 100 MG TABLET PO SCH (21:38)
[2024-05-27] MEDS: PRENATAL VITAMINS W/ FOLIC ACID TABLET (FP) PO SCH (09:07)
[2024-05-27] MEDS: POLYETHYLENE GLYCOL (HEALTHYLAX) 3350 17 GM PACKET PO PRN (09:12)
[2024-05-27 11:02] LABS: HEMATOCRIT 40.8 % (35.4-49); HEMOGLOBIN 13.6 GM/dL (11.7-16.9); MCH 30.4 pg (25.7-33.7); MCHC 33.3 g/dl (32.0-35.9); MEAN CELL VOLUME 91.3 fl (80-96); MEAN PLT VOLUME 8.9 fl (7.5-11.1); PLATELET COUNT 248 10^3/uL (134-434); RBC 4.47 M/mm3 (4.00-5.60); WHITE BLOOD COUNT 6.3 K/mm3 (4.0-10.0)
[2024-05-27 11:25] LABS: POTASSIUM 4.3 mmol/L (3.5-5.1)
[2024-05-27 11:37] LABS: ALBUMIN 3.3 g/dl (3.4-5.0); CALCIUM 8.6 mg/dL (8.5-10.1)
[2024-05-27 11:41] LABS: CREATININE 0.8 mg/dL (0.55-1.3)
[2024-05-27 11:42] LABS: BILIRUBIN,TOTAL 0.2 mg/dL (0.2-1)
[2024-05-27 11:43] LABS: TOT PROT 5.9 g/dl (6.4-8.2)
[2024-05-27] MEDS ORDERED: BUDESONIDE/FORMETEROL FUMARATE 160/4.5 mcg INHALER IH SCH (11:45)
[2024-05-27] MEDS: ACETAMINOPHEN 325 MG TABLET (FP) PO PRN (15:27)
[2024-05-27] MEDS: MINERAL OIL/PETROLAT/WATER TOPICAL CREAM 113 GM JAR TP SCH (22:34)
[2024-05-27] MEDS: TRIAMCINOLONE ACET 0.1% OINT 15 GM TUBE TP SCH (22:35)
[2024-05-28] MEDS: MAGNESIUM HYDROX 2400MG/30ML ORAL SUSPENSION 30 ML CUP PO PRN (00:28)
[2024-05-28] MEDS: methaDONE HCL 10 MG TABLET (FOR DETOX USE ONLY) PO ONE (09:46)
[2024-05-28] MEDS: IBUPROFEN 600 MG TABLET (FP) PO PRN (19:04)
[2024-05-28] MEDS: cloNIDine HCL 0.1 MG TABLET PO PRN (23:25)
[2024-05-30] MEDS: diazePAM 5 MG TABLET PO ONE (01:34)
[2024-05-30] MEDS: methaDONE HCL 10 MG TABLET (FOR DETOX USE ONLY) PO ONE (09:40)
[2024-05-30 10:04] VITALS: BP 133/74; PULSE 20; RESP 82; TEMP 97.5
== END 2024-05-30 09:44 | disposition home or self-care (01) | DRG 773 ==
LOC: YASAS 09:44 → Y3N 11:56
PROVIDERS: ADMIT Allergy & Immunology; ATTEND Family Medicine Addiction Medicine
PROC: HZ2ZZZZ Detoxification Services for Substance Abuse Treatment (ICD-10-PCS; principal; 2024-05-26)
DX: F11.23 Opioid dependence with withdrawal (principal); J45.20 Mild intermittent asthma, uncomplicated; L30.9 Dermatitis, unspecified; Z87.891 Personal history of nicotine dependence
CPT/HCPCS: 36415; 80053; 80305; 80307; 85027; 86780; 93005; 93010; Q0162

== ENCOUNTER 2024-06-11 11:46 | Inpatient (IN) | payer OTHER ==
[2024-06-11 12:15] VITALS: BMI 30.5
[2024-06-11] MEDS ORDERED: DICYCLOMINE HCL 10 MG CAPSULE PO PRN (14:58)
[2024-06-11] MEDS ORDERED: BENZONATATE 200 MG CAPSULE PO PRN (14:58)
[2024-06-11] MEDS ORDERED: guaiFENesin 600 MG TABLET.ER (FP) PO PRN (14:58)
[2024-06-11] MEDS ORDERED: LOPERAMIDE HCL 2 MG CAPSULE PO PRN (14:58)
[2024-06-11] MEDS ORDERED: ACETAMINOPHEN 325 MG TABLET (FP) PO PRN (14:58)
[2024-06-11] MEDS ORDERED: NALOXONE HCL 0.4 MG/ML VIAL IM PRN (14:58)
[2024-06-11] MEDS ORDERED: POLYETHYLENE GLYCOL (HEALTHYLAX) 3350 17 GM PACKET PO PRN (14:58)
[2024-06-11] MEDS ORDERED: MAGNESIUM HYDROX 2400MG/30ML ORAL SUSPENSION 30 ML CUP PO PRN (14:58)
[2024-06-11] MEDS ORDERED: BENZOCAINE/MENTHOL (CHLORASEPTIC ) LOZENGE MM PRN (14:58)
[2024-06-11] MEDS ORDERED: NALOXONE (NARCAN) HCL 4 MG/0.1 ML SPRAY NS PRN (14:58)
[2024-06-11] MEDS ORDERED: BISMUTH SUBSALICYLATE 524 MG/30 ML PO PRN (14:58)
[2024-06-11] MEDS ORDERED: IBUPROFEN 400 MG TABLET (FP) PO ONE (15:24)
[2024-06-11] MEDS ORDERED: methaDONE HCL 10 MG TABLET (FOR DETOX USE ONLY) ONE (15:24)
[2024-06-11] MEDS: IBUPROFEN 400 MG TABLET (FP) PO PRN (15:30)
[2024-06-11] MEDS: methaDONE HCL 10 MG TABLET (FOR DETOX USE ONLY) PO ONE (15:31)
[2024-06-11] MEDS: hydrOXYzine PAMOATE 25 MG CAPSULE (FP) PO PRN (17:36)
[2024-06-11] MEDS: METHOCARBAMOL 500 MG TABLET PO PRN (17:36)
[2024-06-11] MEDS: cloNIDine HCL 0.1 MG TABLET PO PRN (20:14)
[2024-06-11] MEDS: THIAMINE 100 MG TABLET PO SCH (22:08)
[2024-06-11] MEDS: MELATONIN 5 MG TABLETS PO SCH (22:08)
[2024-06-11] MEDS: BUDESONIDE/FORMETEROL FUMARATE 160/4.5 mcg INHALER IH SCH (22:08)
[2024-06-12] MEDS: IBUPROFEN 600 MG TABLET (FP) PO PRN (06:27)
[2024-06-12] MEDS: PRENATAL VITAMINS W/ FOLIC ACID TABLET (FP) PO SCH (10:06)
[2024-06-12] MEDS: diazePAM 5 MG TABLET PO PRN (10:11)
[2024-06-12 11:08] LABS: HEMATOCRIT 39.7 % (35.4-49); HEMOGLOBIN 13.3 GM/dL (11.7-16.9); MCH 30.1 pg (25.7-33.7); MCHC 33.6 g/dl (32.0-35.9); MEAN CELL VOLUME 89.7 fl (80-96); MEAN PLT VOLUME 8.6 fl (7.5-11.1); PLATELET COUNT 324 10^3/uL (134-434); RBC 4.42 M/mm3 (4.00-5.60); RDW 12.9 % (11.9-15.9); WHITE BLOOD COUNT 8.7 K/mm3 (4.0-10.0)
[2024-06-12 11:09] LABS: CHLORIDE 108 mmol/L (98-107); POTASSIUM 4.1 mmol/L (3.5-5.1); SODIUM 139 mmol/L (136-145)
[2024-06-12 11:15] LABS: CALCIUM 8.5 mg/dL (8.5-10.1)
[2024-06-12 11:16] LABS: ALBUMIN 3.2 g/dl (3.4-5.0); ANION GAP 4 mmol/L (4-13); BLOOD UREA NITROGEN 16.9 mg/dL (7-18); CO2 27 mmol/L (21-32); GLUCOSE,RANDOM 101 mg/dL (74-106)
[2024-06-12 11:19] LABS: CREATININE 0.7 mg/dL (0.55-1.3); SGOT/AST 13 U/L (15-37); SGPT/ALT 58 U/L (13-61)
[2024-06-12 11:20] LABS: BILIRUBIN,TOTAL 0.4 mg/dL (0.2-1); TOT PROT 6.1 g/dl (6.4-8.2)
[2024-06-12 11:22] LABS: ALK PHOS 77 U/L (45-117)
[2024-06-12] MEDS ORDERED: SUVOREXANT 5 MG TABLET PO PRN (22:00)
[2024-06-12] MEDS: SUVOREXANT 5 MG TABLET PO PRN (22:09)
[2024-06-13] MEDS: methaDONE HCL 10 MG TABLET (FOR DETOX USE ONLY) PO ONE (10:14)
[2024-06-13] MEDS: TRIAMCINOLONE ACET 0.5% OINT 15 GM TUBE TP SCH (12:18)
[2024-06-13] MEDS: MICONAZOLE NITRATE 28 GM TUBE TP SCH (14:44)
[2024-06-14] MEDS: hydrOXYzine PAMOATE 50 MG CAPSULE (FP) PO PRN (04:35)
[2024-06-14] MEDS: ONDANSETRON *ODT* 4 MG TABLET SL PRN (09:53)
[2024-06-14] MEDS: MAG HYDROX/AL HYDROX/SIMETH 30 ML UNIT-DOSE CUP PO PRN (22:24)
[2024-06-15] MEDS: methaDONE HCL 10 MG TABLET (FOR DETOX USE ONLY) PO ONE (09:28)
[2024-06-15] MEDS: ALBUTEROL SO4 HFA INHALER IH PRN (11:15)
[2024-06-15] MEDS ORDERED: ALBUTEROL SO4 0.083% IH SOL 2.5 MG/3 ML VIAL.NEB. NEB ONE (12:11)
[2024-06-15] MEDS ORDERED: ALBUTEROL SO4 2.5/IPRATROPIUM 0.5 INH SOL 3 ML VIAL.NEB. NEB ONE (12:12)
[2024-06-15] MEDS: ALBUTEROL SO4 2.5/IPRATROPIUM 0.5 INH SOL 3 ML VIAL.NEB. NEB ONE (13:10)
[2024-06-16 08:55] VITALS: BP 107/59; PULSE 72; RESP 18; TEMP 97.5
== END 2024-06-16 10:32 | disposition other institution (70) | DRG 773 ==
LOC: YASAS 11:46 → Y3N 14:43
PROVIDERS: ADMIT Allergy & Immunology; ATTEND Surgery
PROC: HZ2ZZZZ Detoxification Services for Substance Abuse Treatment (ICD-10-PCS; principal; 2024-06-11)
DX: F11.23 Opioid dependence with withdrawal (principal); F10.230 Alcohol dependence with withdrawal, uncomplicated; F19.282 Other psychoactive substance dependence with psychoactive substance-induced sleep disorder; J45.20 Mild intermittent asthma, uncomplicated; J30.2 Other seasonal allergic rhinitis; L20.82 Flexural eczema; Z87.891 Personal history of nicotine dependence
CPT/HCPCS: 36415; 80053; 80305; 80307; 85027; 86780; 93005; 93010; 94640; Q0162

== ENCOUNTER 2024-08-31 09:13 | Inpatient (IN) | payer OTHER ==
[2024-08-31 09:36] VITALS: BMI 31.3
[2024-08-31] MEDS ORDERED: guaiFENesin 600 MG TABLET.ER (FP) PO PRN (10:18)
[2024-08-31] MEDS ORDERED: ACETAMINOPHEN 325 MG TABLET (FP) PO PRN (10:18)
[2024-08-31] MEDS ORDERED: POLYETHYLENE GLYCOL (HEALTHYLAX) 3350 17 GM PACKET PO PRN (10:18)
[2024-08-31] MEDS ORDERED: MAG HYDROX/AL HYDROX/SIMETH 30 ML UNIT-DOSE CUP PO PRN (10:18)
[2024-08-31] MEDS ORDERED: BISMUTH SUBSALICYLATE 524 MG/30 ML PO PRN (10:18)
[2024-08-31] MEDS ORDERED: BENZOCAINE/MENTHOL (CHLORASEPTIC ) LOZENGE MM PRN (10:18)
[2024-08-31] MEDS ORDERED: methaDONE HCL 10 MG TABLET (FOR DETOX USE ONLY) PO PRN (10:18)
[2024-08-31] MEDS ORDERED: DICYCLOMINE HCL 10 MG CAPSULE PO PRN (10:18)
[2024-08-31] MEDS ORDERED: IBUPROFEN 400 MG TABLET (FP) PO PRN (10:18)
[2024-08-31] MEDS ORDERED: BENZONATATE 200 MG CAPSULE PO PRN (10:18)
[2024-08-31] MEDS ORDERED: LOPERAMIDE HCL 2 MG CAPSULE PO PRN (10:18)
[2024-08-31] MEDS ORDERED: NALOXONE (NARCAN) HCL 4 MG/0.1 ML SPRAY NS PRN (10:18)
[2024-08-31] MEDS: methaDONE HCL 10 MG TABLET (FOR DETOX USE ONLY) PO ONE (11:47)
[2024-08-31] MEDS: ONDANSETRON *ODT* 4 MG TABLET SL PRN (11:49)
[2024-08-31] MEDS: METHOCARBAMOL 500 MG TABLET PO PRN (11:49)
[2024-08-31] MEDS: hydrOXYzine PAMOATE 25 MG CAPSULE (FP) PO PRN (13:27)
[2024-08-31] MEDS: IBUPROFEN 600 MG TABLET (FP) PO PRN (13:27)
[2024-08-31] MEDS ORDERED: MELATONIN 5 MG TABLETS PO SCH (22:00)
[2024-08-31] MEDS: SUVOREXANT 5 MG TABLET PO PRN (22:08)
[2024-08-31] MEDS: THIAMINE 100 MG TABLET PO SCH (22:10)
[2024-08-31] MEDS: BUDESONIDE/FORMETEROL FUMARATE 160/4.5 mcg INHALER IH SCH (22:10)
[2024-09-01] MEDS: cloNIDine HCL 0.1 MG TABLET PO PRN (00:01)
[2024-09-01] MEDS: PRENATAL VITAMINS W/ FOLIC ACID TABLET (FP) PO SCH (10:32)
[2024-09-01 11:14] LABS: POTASSIUM 4.1 mmol/L (3.5-5.1)
[2024-09-01 11:18] LABS: HEMATOCRIT 40.6 % (35.4-49); HEMOGLOBIN 13.3 GM/dL (11.7-16.9); MCH 29.9 pg (25.7-33.7); MCHC 32.8 g/dl (32.0-35.9); MEAN CELL VOLUME 91.3 fl (80-96); MEAN PLT VOLUME 9.3 fl (7.5-11.1); PLATELET COUNT 339 10^3/uL (134-434); RBC 4.45 M/mm3 (4.00-5.60); RDW 13.2 % (11.9-15.9); WHITE BLOOD COUNT 5.6 K/mm3 (4.0-10.0)
[2024-09-01 11:23] LABS: CALCIUM 9.2 mg/dL (8.5-10.1)
[2024-09-01 11:24] LABS: ALBUMIN 3.9 g/dl (3.4-5.0); BLOOD UREA NITROGEN 13.3 mg/dL (7-18)
[2024-09-01 11:27] LABS: CREATININE 0.9 mg/dL (0.55-1.3)
[2024-09-01 11:28] LABS: BILIRUBIN,TOTAL 0.3 mg/dL (0.2-1); TOT PROT 6.9 g/dl (6.4-8.2)
[2024-09-01] MEDS: MAGNESIUM HYDROX 2400MG/30ML ORAL SUSPENSION 30 ML CUP PO PRN (12:21)
[2024-09-01] MEDS: diazePAM 5 MG TABLET PO PRN (15:39)
[2024-09-01] MEDS: HYDROCORTISONE 1% TOPICAL CREAM 30 GM TUBE TP PRN (15:41)
[2024-09-02] MEDS: methaDONE HCL 10 MG TABLET (FOR DETOX USE ONLY) PO ONE (10:23)
[2024-09-03] MEDS: ALBUTEROL SO4 HFA INHALER IH PRN (13:09)
[2024-09-03] MEDS: TRIAMCINOLONE ACET 0.1% CREAM 15 GM TUBE TP SCH (21:11)
[2024-09-04] MEDS: methaDONE HCL 10 MG TABLET (FOR DETOX USE ONLY) PO ONE (10:00)
[2024-09-04] MEDS: P-EPHED 60MG/TRIPROLIDI 2.5MG TABLET PO PRN (12:27)
[2024-09-04 14:04] VITALS: BP 122/70; PULSE 113; RESP 17; TEMP 97.5
[2024-09-04] MEDS: NALOXONE (NYS OPIOID OVERDOSE PROGRAM) 4 MG/0.1 ML SPRAY NS PRN (14:09)
== END 2024-09-04 14:31 | disposition home or self-care (01) | DRG 773 ==
LOC: YASAS 09:13 → Y3N 11:41
PROVIDERS: ADMIT Allergy & Immunology; ATTEND Surgery
PROC: HZ2ZZZZ Detoxification Services for Substance Abuse Treatment (ICD-10-PCS; principal; 2024-08-31)
DX: F11.23 Opioid dependence with withdrawal (principal); F19.282 Other psychoactive substance dependence with psychoactive substance-induced sleep disorder; J45.20 Mild intermittent asthma, uncomplicated; L30.9 Dermatitis, unspecified; Z87.891 Personal history of nicotine dependence
CPT/HCPCS: 36415; 80053; 80307; 85027; 86780; 93005; 93010; Q0162